=== PATIENT | female | born 1955 | race Caucasian/White ===

== ENCOUNTER 2020-09-27 18:08 | Emergency (ER) | payer OTHER ==
[~2020-09-27] VITALS: Ht 152.4 cm; Wt 57.0 kg
[2020-09-27 18:30] VITALS: BP 157/57
== END 2020-09-27 19:33 | disposition home or self-care (01) ==
LOC: ER 18:08
DX: M25.521 Pain in right elbow (principal); W01.0XXA Fall on same level from slipping, tripping and stumbling without subsequent striking against object, initial encounter; Y93.89 Activity, other specified; Y92.018 Other place in single-family (private) house as the place of occurrence of the external cause
CPT/HCPCS: 99281